=== PATIENT | male | born 1940 | race Caucasian/White ===

== ENCOUNTER 2017-10-11 22:42 | Inpatient (IN) | payer MEDICARE ==
[2017-10-11 23:19] LABS: BASO % 0.7 % (0.0-1.0); EOS # 0.2 10^3/uL (0.0-0.50); EOS % 3.5 % (0.0-3.0); HEMATOCRIT 43.2 % (42.0-52.0); HEMOGLOBIN 14.4 g/dl (14.0-18.0); IMMATURE GRANULOCYTE % 0.3 % (0-0); LYMPH # 0.7 10^3/uL (1.5-4.5); LYMPH % 11.3 % (24.0-44.0); MEAN CORPUSCULAR HEMOGLOBIN 31.2 pg (27.0-33.0); MEAN CORPUSCULAR HGB CONC 33.3 g/dl (32.0-36.5); MEAN CORPUSCULAR VOLUME 93.7 fl (80.0-96.0); MONO # 0.3 10^3/uL (0.0-0.8); MONO % 5.6 % (0.0-5.0); NEUTROPHILS # 4.8 10^3/uL (1.8-7.7); NEUTROPHILS % 78.6 % (36.0-66.0); PLATELET COUNT, AUTOMATED 149 10^3/uL (150-450); RED BLOOD COUNT 4.61 10^6/uL (4.30-6.10); RED CELL DISTRIBUTION WIDTH 14.5 % (11.5-14.5); WHITE BLOOD COUNT 6.1 10^3/uL (4.0-10.0)
[2017-10-11 23:20] LABS: VENOUS BASE EXCESS 0.2 (-2.0-2.0); VENOUS HCO3 23.8 MEQ/L (23.0-27.0); VENOUS O2 SATURATION 95.8 % (60.0-80.0); VENOUS PARTIAL PRESSURE CO2 35.9 mmHg (38.0-50.0); VENOUS STANDARD HCO3 24.6 MEQ/L; VENOUS TOTAL CO2 24.9 MEQ/L (24.0-28.0)
[2017-10-11] MEDS: IPRATROPIUM 0.5MG/ALBUTEROL 2.5MG INH SOL UD 3ML (DUONEB)(J7620) NEB (23:48)
[2017-10-11 23:49] LABS: ANION GAP 7 MEQ/L (8-16); BLOOD UREA NITROGEN 23 MG/DL (7-18); CALCIUM LEVEL 9.6 MG/DL (8.8-10.2); CARBON DIOXIDE LEVEL 27 MEQ/L (21-32); CHLORIDE LEVEL 107 MEQ/L (98-107); CREATININE FOR GFR 1.73 MG/DL (0.70-1.30); GLOMERULAR FILTRATION RATE 40.8 (>42); GLUCOSE, FASTING 272 MG/DL (83-110); NT-PRO BNP 22428 PG/ML (<450); POTASSIUM SERUM 4.5 MEQ/L (3.5-5.1); SODIUM LEVEL 141 MEQ/L (136-145)
[2017-10-12 00:30] LABS: CK-MB VALUE MASS 1.5 NG/ML (0.0-3.6); CPK CREATINE PHOSPHOKINASE 46 U/L (39-308); MB/CK RELATIVE INDEX 3.26 (< OR =4); TROPONIN I 0.02 NG/ML (< 0.10)
[2017-10-12] MEDS: FUROSEMIDE 40 MG/4 ML VIAL (J1940) IV (00:48)
[2017-10-12] MEDS: valACYclovir HCL 500 MG TAB PO ×3 (00:48→17:26)
[2017-10-12] MEDS ORDERED: DEXTROSE 50% 50 ML SYRINGE IV (03:15)
[2017-10-12] MEDS ORDERED: GLUCOSE 4 GM CHEW TABLET PO (03:15)
[2017-10-12] MEDS ORDERED: GLUCAGON FOR INJ 1 MG VIAL (J1610) SC (03:15)
[2017-10-12 03:16] LABS: INR 3.98; PROTHROMBIN TIME 40.9 SECONDS (12.4-14.5)
[2017-10-12] MEDS ORDERED: SLF 3 ML SYR IV (04:30)
[2017-10-12] MEDS: FUROSEMIDE 100 MG/10 ML VIAL (J1940) IV ×3 (06:39→17:25)
[2017-10-12] MEDS: SLF 3 ML SYR IV ×3 (06:39→22:48)
[2017-10-12 08:19] LABS: BEDSIDE GLUCOSE 338 MG/DL (83-110)
[2017-10-12] MEDS: CARVedilol 12.5 MG TAB PO ×2 (08:41→22:24)
[2017-10-12] MEDS: ISOSORBIDE MON. (IMDUR) 60 MG XR TAB PO (08:41)
[2017-10-12] MEDS: HumaLOG INSULIN (NovoLOG) PER UNIT SC ×4 (08:41→22:47)
[2017-10-12] MEDS: AMIODARONE 200 MG TAB (PACERONE) PO (08:41)
[2017-10-12] MEDS: MAGNESIUM OXIDE 400 MG TAB (MAG-OX) PO (08:42)
[2017-10-12 08:50] LABS: HEMATOCRIT 45.7 % (42.0-52.0); MEAN CORPUSCULAR HEMOGLOBIN 31.1 pg (27.0-33.0); MEAN CORPUSCULAR HGB CONC 32.8 g/dl (32.0-36.5); MEAN CORPUSCULAR VOLUME 94.6 fl (80.0-96.0); PLATELET COUNT, AUTOMATED 134 10^3/uL (150-450); RED BLOOD COUNT 4.83 10^6/uL (4.30-6.10); RED CELL DISTRIBUTION WIDTH 14.6 % (11.5-14.5); WHITE BLOOD COUNT 6.5 10^3/uL (4.0-10.0)
[2017-10-12 09:09] LABS: ANION GAP 10 MEQ/L (8-16); BLOOD UREA NITROGEN 25 MG/DL (7-18); CALCIUM LEVEL 9.5 MG/DL (8.8-10.2); CARBON DIOXIDE LEVEL 27 MEQ/L (21-32); CHLORIDE LEVEL 106 MEQ/L (98-107); CREATININE FOR GFR 1.81 MG/DL (0.70-1.30); GLOMERULAR FILTRATION RATE 38.7 (>42); GLUCOSE, FASTING 319 MG/DL (83-110); MAGNESIUM LEVEL 2.1 MG/DL (1.8-2.4); POTASSIUM SERUM 4.5 MEQ/L (3.5-5.1); SODIUM LEVEL 143 MEQ/L (136-145)
[2017-10-12 12:12] LABS: BEDSIDE GLUCOSE 222 MG/DL (83-110)
[2017-10-12 17:05] LABS: BEDSIDE GLUCOSE 155 MG/DL (83-110)
[2017-10-12 22:54] LABS: BEDSIDE GLUCOSE 279 MG/DL (83-110)
[2017-10-13] MEDS: FUROSEMIDE 100 MG/10 ML VIAL (J1940) IV ×5 (01:10→23:31)
[2017-10-13] MEDS: valACYclovir HCL 500 MG TAB PO ×3 (01:11→17:22)
[2017-10-13 05:12] LABS: HEMATOCRIT 42.9 % (42.0-52.0); HEMOGLOBIN 14.4 g/dl (14.0-18.0); MEAN CORPUSCULAR HEMOGLOBIN 31.2 pg (27.0-33.0); MEAN CORPUSCULAR HGB CONC 33.6 g/dl (32.0-36.5); MEAN CORPUSCULAR VOLUME 93.1 fl (80.0-96.0); PLATELET COUNT, AUTOMATED 128 10^3/uL (150-450); RED BLOOD COUNT 4.61 10^6/uL (4.30-6.10); RED CELL DISTRIBUTION WIDTH 14.8 % (11.5-14.5); WHITE BLOOD COUNT 4.5 10^3/uL (4.0-10.0)
[2017-10-13 05:21] LABS: ANION GAP 8 MEQ/L (8-16); BLOOD UREA NITROGEN 32 MG/DL (7-18); CALCIUM LEVEL 9.2 MG/DL (8.8-10.2); CARBON DIOXIDE LEVEL 29 MEQ/L (21-32); CHLORIDE LEVEL 106 MEQ/L (98-107); CREATININE FOR GFR 1.92 MG/DL (0.70-1.30); GLOMERULAR FILTRATION RATE 36.1 (>42); GLUCOSE, FASTING 224 MG/DL (83-110); MAGNESIUM LEVEL 2.2 MG/DL (1.8-2.4); POTASSIUM SERUM 3.7 MEQ/L (3.5-5.1); SODIUM LEVEL 143 MEQ/L (136-145)
[2017-10-13] MEDS: SLF 3 ML SYR IV ×3 (07:01→21:50)
[2017-10-13] MEDS: HumaLOG INSULIN (NovoLOG) PER UNIT SC ×4 (07:47→21:50)
[2017-10-13 08:27] LABS: INR 2.35; PROTHROMBIN TIME 26.7 SECONDS (12.4-14.5)
[2017-10-13] MEDS: AMIODARONE 200 MG TAB (PACERONE) PO (08:54)
[2017-10-13] MEDS: MAGNESIUM OXIDE 400 MG TAB (MAG-OX) PO (08:54)
[2017-10-13] MEDS: ISOSORBIDE MON. (IMDUR) 60 MG XR TAB PO (08:54)
[2017-10-13] MEDS: CARVedilol 12.5 MG TAB PO ×2 (08:55→20:33)
[2017-10-13] MEDS: WARFARIN SOD 2.5 MG TAB PO (18:27)
[2017-10-13 21:55] LABS: BEDSIDE GLUCOSE 210 MG/DL (83-110)
[2017-10-13 21:55] LABS: BEDSIDE GLUCOSE 282 MG/DL (83-110)
[2017-10-13 21:55] LABS: BEDSIDE GLUCOSE 259 MG/DL (83-110)
[2017-10-14] MEDS: valACYclovir HCL 500 MG TAB PO ×2 (01:14→08:32)
[2017-10-14 04:57] LABS: HEMATOCRIT 42.8 % (42.0-52.0); HEMOGLOBIN 14.3 g/dl (14.0-18.0); MEAN CORPUSCULAR HEMOGLOBIN 31.2 pg (27.0-33.0); MEAN CORPUSCULAR HGB CONC 33.4 g/dl (32.0-36.5); MEAN CORPUSCULAR VOLUME 93.4 fl (80.0-96.0); PLATELET COUNT, AUTOMATED 139 10^3/uL (150-450); RED BLOOD COUNT 4.58 10^6/uL (4.30-6.10); RED CELL DISTRIBUTION WIDTH 14.8 % (11.5-14.5); WHITE BLOOD COUNT 4.2 10^3/uL (4.0-10.0)
[2017-10-14 05:06] LABS: INR 1.79; PROTHROMBIN TIME 21.4 SECONDS (12.4-14.5)
[2017-10-14 05:16] LABS: ANION GAP 9 MEQ/L (8-16); BLOOD UREA NITROGEN 40 MG/DL (7-18); CALCIUM LEVEL 8.4 MG/DL (8.8-10.2); CARBON DIOXIDE LEVEL 28 MEQ/L (21-32); CHLORIDE LEVEL 106 MEQ/L (98-107); CREATININE FOR GFR 2.21 MG/DL (0.70-1.30); GLOMERULAR FILTRATION RATE 30.7 (>42); GLUCOSE, FASTING 117 MG/DL (83-110); MAGNESIUM LEVEL 2.1 MG/DL (1.8-2.4); POTASSIUM SERUM 3.5 MEQ/L (3.5-5.1); SODIUM LEVEL 143 MEQ/L (136-145)
[2017-10-14] MEDS: FUROSEMIDE 100 MG/10 ML VIAL (J1940) IV (06:31)
[2017-10-14] MEDS: SLF 3 ML SYR IV ×3 (06:32→21:54)
[2017-10-14] MEDS: HumaLOG INSULIN (NovoLOG) PER UNIT SC ×5 (07:32→21:53)
[2017-10-14] MEDS: CARVedilol 12.5 MG TAB PO ×3 (08:31→22:00)
[2017-10-14] MEDS: ISOSORBIDE MON. (IMDUR) 60 MG XR TAB PO (08:38)
[2017-10-14] MEDS: AMIODARONE 200 MG TAB (PACERONE) PO (08:38)
[2017-10-14] MEDS: MAGNESIUM OXIDE 400 MG TAB (MAG-OX) PO (08:38)
[2017-10-14 13:56] LABS: APPEARANCE, URINE TURBID (CLEAR); BACTERIA, URINE AUTO 3+ (NEGATIVE); BILIRUBIN, URINE AUTO NEGATIVE (NEGATIVE); BLOOD, URINE BLOOD NEGATIVE (NEGATIVE); COLOR, URINE AMBER (YELLOW); GLUCOSE, URINE (UA) AUTO NEGATIVE (NEGATIVE); KETONE, URINE AUTO NEGATIVE (NEGATIVE); LEUKOCYTE ESTERASE, URINE AUTO 3+ (NEGATIVE); NITRITE, URINE AUTO NEGATIVE (NEGATIVE); PROTEIN, URINE AUTO 1+ mg/dL (NEGATIVE); RBC, URINE AUTO 14 /HPF (0-3); SPECIFIC GRAVITY URINE AUTO 1.011 (1.002-1.035); SQUAMOUS EPITHELIAL CELL UR AU 1 /HPF (0-6); UROBILINOGEN, URINE AUTO 0.2 mg/dL (0.0-2.0); WBC, URINE AUTO TNTC /HPF (0-3)
[2017-10-14 16:10] LABS: BEDSIDE GLUCOSE 378 MG/DL (83-110)
[2017-10-14] MEDS: ASPIRIN 81 MG ENTERIC TAB PO (16:40)
[2017-10-14] MEDS: WARFARIN SOD 5 MG TAB PO (16:40)
[2017-10-14 17:10] LABS: BEDSIDE GLUCOSE 201 MG/DL (83-110)
[2017-10-14] MEDS: NYSTATIN 100,000 UNITS/GM TOPICAL PWD 15 GM TOP (23:37)
[2017-10-15 00:11] LABS: BEDSIDE GLUCOSE 195 MG/DL (83-110)
[2017-10-15 04:15] LABS: HEMATOCRIT 43.1 % (42.0-52.0); HEMOGLOBIN 14.2 g/dl (14.0-18.0); MEAN CORPUSCULAR HEMOGLOBIN 31.1 pg (27.0-33.0); MEAN CORPUSCULAR HGB CONC 32.9 g/dl (32.0-36.5); MEAN CORPUSCULAR VOLUME 94.3 fl (80.0-96.0); PLATELET COUNT, AUTOMATED 141 10^3/uL (150-450); RED BLOOD COUNT 4.57 10^6/uL (4.30-6.10); RED CELL DISTRIBUTION WIDTH 14.7 % (11.5-14.5); WHITE BLOOD COUNT 4.4 10^3/uL (4.0-10.0)
[2017-10-15 04:32] LABS: ANION GAP 7 MEQ/L (8-16); BLOOD UREA NITROGEN 50 MG/DL (7-18); CALCIUM LEVEL 7.8 MG/DL (8.8-10.2); CARBON DIOXIDE LEVEL 28 MEQ/L (21-32); CHLORIDE LEVEL 107 MEQ/L (98-107); CREATININE FOR GFR 2.39 MG/DL (0.70-1.30); GLOMERULAR FILTRATION RATE 28.1 (>42); GLUCOSE, FASTING 154 MG/DL (83-110); INR 1.59; MAGNESIUM LEVEL 2.4 MG/DL (1.8-2.4); POTASSIUM SERUM 3.7 MEQ/L (3.5-5.1); PROTHROMBIN TIME 19.4 SECONDS (12.4-14.5); SODIUM LEVEL 142 MEQ/L (136-145)
[2017-10-15] MEDS: SLF 3 ML SYR IV ×3 (06:22→21:20)
[2017-10-15 07:48] LABS: BEDSIDE GLUCOSE 215 MG/DL (83-110)
[2017-10-15] MEDS: HumaLOG INSULIN (NovoLOG) PER UNIT SC ×4 (08:15→21:00)
[2017-10-15] MEDS: AMIODARONE 200 MG TAB (PACERONE) PO (08:16)
[2017-10-15] MEDS: CARVedilol 12.5 MG TAB PO ×2 (08:16→21:00)
[2017-10-15] MEDS: ASPIRIN 81 MG ENTERIC TAB PO (08:16)
[2017-10-15] MEDS: valACYclovir HCL 500 MG TAB PO (08:16)
[2017-10-15] MEDS: MAGNESIUM OXIDE 400 MG TAB (MAG-OX) PO (08:17)
[2017-10-15] MEDS: ISOSORBIDE MON. (IMDUR) 60 MG XR TAB PO (08:17)
[2017-10-15] MEDS: NYSTATIN 100,000 UNITS/GM TOPICAL PWD 15 GM TOP ×2 (08:19→21:20)
[2017-10-15 11:53] LABS: BEDSIDE GLUCOSE 332 MG/DL (83-110)
[2017-10-15 17:12] LABS: BEDSIDE GLUCOSE 285 MG/DL (83-110)
[2017-10-15] MEDS: WARFARIN SOD 5 MG TAB PO (17:50)
[2017-10-15] MEDS: ACETAMINOPHEN TAB 650MG DOSE (2X325MG) PO (21:21)
[2017-10-15 21:49] LABS: BEDSIDE GLUCOSE 229 MG/DL (83-110)
[2017-10-16] MEDS: ACETAMINOPHEN TAB 650MG DOSE (2X325MG) PO ×3 (04:12→22:39)
[2017-10-16] MEDS: SLF 3 ML SYR IV ×3 (04:15→21:06)
[2017-10-16 05:12] LABS: HEMATOCRIT 40.5 % (42.0-52.0); HEMOGLOBIN 13.4 g/dl (14.0-18.0); MEAN CORPUSCULAR HEMOGLOBIN 31.2 pg (27.0-33.0); MEAN CORPUSCULAR HGB CONC 33.1 g/dl (32.0-36.5); MEAN CORPUSCULAR VOLUME 94.2 fl (80.0-96.0); PLATELET COUNT, AUTOMATED 140 10^3/uL (150-450); RED CELL DISTRIBUTION WIDTH 14.8 % (11.5-14.5); WHITE BLOOD COUNT 5.7 10^3/uL (4.0-10.0)
[2017-10-16 05:23] LABS: INR 1.85; PROTHROMBIN TIME 21.9 SECONDS (12.4-14.5)
[2017-10-16 05:34] LABS: ANION GAP 7 MEQ/L (8-16); BLOOD UREA NITROGEN 52 MG/DL (7-18); CALCIUM LEVEL 7.8 MG/DL (8.8-10.2); CARBON DIOXIDE LEVEL 26 MEQ/L (21-32); CHLORIDE LEVEL 107 MEQ/L (98-107); CREATININE FOR GFR 2.03 MG/DL (0.70-1.30); GLOMERULAR FILTRATION RATE 33.9 (>42); GLUCOSE, FASTING 213 MG/DL (83-110); MAGNESIUM LEVEL 2.3 MG/DL (1.8-2.4); POTASSIUM SERUM 3.9 MEQ/L (3.5-5.1); SODIUM LEVEL 140 MEQ/L (136-145)
[2017-10-16] MEDS: HumaLOG INSULIN (NovoLOG) PER UNIT SC ×4 (08:19→21:05)
[2017-10-16] MEDS: CARVedilol 12.5 MG TAB PO ×2 (08:19→21:00)
[2017-10-16] MEDS: valACYclovir HCL 500 MG TAB PO (08:20)
[2017-10-16] MEDS: MAGNESIUM OXIDE 400 MG TAB (MAG-OX) PO (08:20)
[2017-10-16] MEDS: ISOSORBIDE MON. (IMDUR) 60 MG XR TAB PO (08:20)
[2017-10-16] MEDS: AMIODARONE 200 MG TAB (PACERONE) PO (08:21)
[2017-10-16] MEDS: ASPIRIN 81 MG ENTERIC TAB PO (08:21)
[2017-10-16] MEDS: NYSTATIN 100,000 UNITS/GM TOPICAL PWD 15 GM TOP ×2 (08:21→21:06)
[2017-10-16] MEDS ORDERED: ROCEPHIN (cefTRIAXone) 100MG/ML SYR BULK (J0696) IV (09:15)
[2017-10-16] MEDS: ACETAMINOPHEN 500 MG TAB PO (09:28)
[2017-10-16] MEDS: CEFTRIAXONE SOD 1 GM in APPROPRIATE DILUENT 1 EA IV (10:48)
[2017-10-16 11:04] LABS: KETONE, URINE AUTO RFX NEGATIVE (NEGATIVE); NITRITE, URINE AUTO RFX NEGATIVE (NEGATIVE); RBC, URINE AUTO RFX 10 /HPF (0-3); SPECIFIC GRAVITY UR AUTO RFX 1.017 (1.002-1.035); SQUAM EPITHELIAL CELL UR AURFX 1 /HPF (0-6)
[2017-10-16 11:05] LABS: LEUKOCYTE ESTERASE UR AUTO RFX 3+ (NEGATIVE); WBC, URINE AUTO RFX TNTC /HPF (0-3)
[2017-10-16] MEDS: MORPHINE 2 MG/ML 1ML SYRINGE IV (11:28)
[2017-10-16] MEDS: LACTOBACILLUS ACIDOPHILUS CAP (BACID) PO ×2 (12:11→17:21)
[2017-10-16 12:51] LABS: BEDSIDE GLUCOSE 237 MG/DL (83-110)
[2017-10-16 17:20] LABS: BEDSIDE GLUCOSE 199 MG/DL (83-110)
[2017-10-16] MEDS: WARFARIN SOD 5 MG TAB PO (17:21)
[2017-10-16 20:54] LABS: BEDSIDE GLUCOSE 333 MG/DL (83-110)
[2017-10-17] MEDS: traMADol 50 MG TAB PO (04:55)
[2017-10-17] MEDS: SLF 3 ML SYR IV ×3 (04:58→20:26)
[2017-10-17 05:49] LABS: HEMATOCRIT 38.8 % (42.0-52.0); HEMOGLOBIN 12.9 g/dl (14.0-18.0); MEAN CORPUSCULAR HEMOGLOBIN 31.9 pg (27.0-33.0); MEAN CORPUSCULAR HGB CONC 33.2 g/dl (32.0-36.5); MEAN CORPUSCULAR VOLUME 95.8 fl (80.0-96.0); PLATELET COUNT, AUTOMATED 133 10^3/uL (150-450); RED BLOOD COUNT 4.05 10^6/uL (4.30-6.10); RED CELL DISTRIBUTION WIDTH 14.7 % (11.5-14.5)
[2017-10-17 06:05] LABS: INR 2.14; PROTHROMBIN TIME 24.7 SECONDS (12.4-14.5)
[2017-10-17 06:13] LABS: ANION GAP 7 MEQ/L (8-16); BLOOD UREA NITROGEN 54 MG/DL (7-18); CARBON DIOXIDE LEVEL 29 MEQ/L (21-32); CHLORIDE LEVEL 105 MEQ/L (98-107); CREATININE FOR GFR 1.87 MG/DL (0.70-1.30); GLOMERULAR FILTRATION RATE 37.3 (>42); GLUCOSE, FASTING 188 MG/DL (83-110); MAGNESIUM LEVEL 2.5 MG/DL (1.8-2.4); SODIUM LEVEL 141 MEQ/L (136-145)
[2017-10-17] MEDS: CALAMINE LOTION 177 ML BTL TOP ×2 (09:00→20:26)
[2017-10-17] MEDS: HumaLOG INSULIN (NovoLOG) PER UNIT SC ×4 (09:01→20:26)
[2017-10-17] MEDS: LACTOBACILLUS ACIDOPHILUS CAP (BACID) PO ×3 (09:01→17:55)
[2017-10-17] MEDS: CARVedilol 12.5 MG TAB PO ×2 (09:02→20:25)
[2017-10-17] MEDS: ISOSORBIDE MON. (IMDUR) 60 MG XR TAB PO (09:02)
[2017-10-17] MEDS: ASPIRIN 81 MG ENTERIC TAB PO (09:02)
[2017-10-17] MEDS: MAGNESIUM OXIDE 400 MG TAB (MAG-OX) PO (09:03)
[2017-10-17] MEDS: NYSTATIN 100,000 UNITS/GM TOPICAL PWD 15 GM TOP ×2 (09:03→20:26)
[2017-10-17] MEDS: AMIODARONE 200 MG TAB (PACERONE) PO (09:03)
[2017-10-17] MEDS: valACYclovir HCL 500 MG TAB PO ×2 (09:03→20:22)
[2017-10-17 11:20] LABS: BEDSIDE GLUCOSE 247 MG/DL (83-110)
[2017-10-17] MEDS: CEFTRIAXONE SOD 1 GM in APPROPRIATE DILUENT 1 EA IV (11:30)
[2017-10-17] MEDS: FUROSEMIDE 100 MG/10 ML VIAL (J1940) IV ×2 (11:31→18:49)
[2017-10-17] MEDS: ACETAMINOPHEN TAB 650MG DOSE (2X325MG) PO (11:31)
[2017-10-17 16:46] LABS: BEDSIDE GLUCOSE 173 MG/DL (83-110)
[2017-10-17] MEDS: WARFARIN SOD 5 MG TAB PO (17:55)
[2017-10-17 20:11] LABS: BEDSIDE GLUCOSE 237 MG/DL (83-110)
[2017-10-18] MEDS: ACETAMINOPHEN TAB 650MG DOSE (2X325MG) PO ×3 (00:47→21:43)
[2017-10-18] MEDS: SLF 3 ML SYR IV ×3 (06:00→21:44)
[2017-10-18 06:26] LABS: HEMATOCRIT 40.6 % (42.0-52.0); HEMOGLOBIN 13.3 g/dl (14.0-18.0); MEAN CORPUSCULAR HEMOGLOBIN 31.6 pg (27.0-33.0); MEAN CORPUSCULAR HGB CONC 32.8 g/dl (32.0-36.5); MEAN CORPUSCULAR VOLUME 96.4 fl (80.0-96.0); PLATELET COUNT, AUTOMATED 132 10^3/uL (150-450); RED BLOOD COUNT 4.21 10^6/uL (4.30-6.10); RED CELL DISTRIBUTION WIDTH 14.6 % (11.5-14.5); WHITE BLOOD COUNT 5.8 10^3/uL (4.0-10.0)
[2017-10-18 06:38] LABS: INR 2.54; PROTHROMBIN TIME 28.4 SECONDS (12.4-14.5)
[2017-10-18 06:40] LABS: ANION GAP 9 MEQ/L (8-16); BLOOD UREA NITROGEN 54 MG/DL (7-18); CALCIUM LEVEL 7.8 MG/DL (8.8-10.2); CARBON DIOXIDE LEVEL 26 MEQ/L (21-32); CHLORIDE LEVEL 105 MEQ/L (98-107); CREATININE FOR GFR 2.07 MG/DL (0.70-1.30); GLOMERULAR FILTRATION RATE 33.1 (>42); GLUCOSE, FASTING 199 MG/DL (83-110); MAGNESIUM LEVEL 2.5 MG/DL (1.8-2.4); POTASSIUM SERUM 4.3 MEQ/L (3.5-5.1); SODIUM LEVEL 140 MEQ/L (136-145)
[2017-10-18] MEDS: HumaLOG INSULIN (NovoLOG) PER UNIT SC ×4 (09:44→21:43)
[2017-10-18] MEDS: MAGNESIUM OXIDE 400 MG TAB (MAG-OX) PO (09:44)
[2017-10-18] MEDS: ISOSORBIDE MON. (IMDUR) 60 MG XR TAB PO (09:45)
[2017-10-18] MEDS: CALAMINE LOTION 177 ML BTL TOP ×2 (09:46→21:44)
[2017-10-18] MEDS: CARVedilol 12.5 MG TAB PO ×2 (09:46→21:42)
[2017-10-18] MEDS: ASPIRIN 81 MG ENTERIC TAB PO (09:46)
[2017-10-18] MEDS: valACYclovir HCL 500 MG TAB PO ×2 (09:46→21:42)
[2017-10-18] MEDS: NYSTATIN 100,000 UNITS/GM TOPICAL PWD 15 GM TOP ×2 (09:46→21:44)
[2017-10-18] MEDS: AMIODARONE 200 MG TAB (PACERONE) PO (09:46)
[2017-10-18] MEDS: LACTOBACILLUS ACIDOPHILUS CAP (BACID) PO ×3 (09:47→17:51)
[2017-10-18 11:04] LABS: URIC ACID 11.6 MG/DL (3.5-7.2)
[2017-10-18] MEDS: predniSONE 20 MG TAB PO ×2 (11:32→21:42)
[2017-10-18] MEDS: ALLOPURINOL 300 MG TAB PO (11:32)
[2017-10-18] MEDS: FUROSEMIDE 100 MG/10 ML VIAL (J1940) IV (11:33)
[2017-10-18] MEDS: CEFTRIAXONE SOD 1 GM in APPROPRIATE DILUENT 1 EA IV (11:33)
[2017-10-18 12:06] LABS: BEDSIDE GLUCOSE 275 MG/DL (83-110)
[2017-10-18 16:26] LABS: BEDSIDE GLUCOSE 321 MG/DL (83-110)
[2017-10-18 17:38] LABS: ABG BASE EXCESS 0.3 (-2.0-2.0); ABG HCO3 25.8 MEQ/L (22.0-26.0); ABG O2 SATURATION 94.6 % (95.0-99.0); ABG PARTIAL PRESSURE CO2 45.1 mmHg (35.0-45.0); ABG PARTIAL PRESSURE O2 71.9 mmHg (75.0-100.0); ABG STANDARD HCO3 24.7 MEQ/L (22.0-26.0); ABG TOTAL CO2 27.2 MEQ/L (23.0-31.0); ABG pH (ARTERIAL) 7.376 UNITS (7.350-7.450)
[2017-10-18] MEDS: WARFARIN SOD 5 MG TAB PO (17:51)
[2017-10-18 18:09] LABS: AMMONIA 16 uMOL/L (<32)
[2017-10-18 21:38] LABS: BEDSIDE GLUCOSE 333 MG/DL (83-110)
[2017-10-19 01:34] LABS: BEDSIDE GLUCOSE 279 MG/DL (83-110)
[2017-10-19] MEDS: SLF 3 ML SYR IV ×3 (06:00→21:23)
[2017-10-19 06:22] LABS: HEMATOCRIT 38.7 % (42.0-52.0); HEMOGLOBIN 12.8 g/dl (14.0-18.0); MEAN CORPUSCULAR HEMOGLOBIN 31.4 pg (27.0-33.0); MEAN CORPUSCULAR HGB CONC 33.1 g/dl (32.0-36.5); MEAN CORPUSCULAR VOLUME 94.9 fl (80.0-96.0); PLATELET COUNT, AUTOMATED 147 10^3/uL (150-450); RED BLOOD COUNT 4.08 10^6/uL (4.30-6.10); RED CELL DISTRIBUTION WIDTH 14.6 % (11.5-14.5); WHITE BLOOD COUNT 6.3 10^3/uL (4.0-10.0)
[2017-10-19 06:36] LABS: ANION GAP 8 MEQ/L (8-16); BLOOD UREA NITROGEN 66 MG/DL (7-18); CALCIUM LEVEL 8.6 MG/DL (8.8-10.2); CARBON DIOXIDE LEVEL 26 MEQ/L (21-32); CHLORIDE LEVEL 105 MEQ/L (98-107); CREATININE FOR GFR 2.15 MG/DL (0.70-1.30); GLOMERULAR FILTRATION RATE 31.7 (>42); GLUCOSE, FASTING 295 MG/DL (83-110); MAGNESIUM LEVEL 3.1 MG/DL (1.8-2.4); POTASSIUM SERUM 4.5 MEQ/L (3.5-5.1); SODIUM LEVEL 139 MEQ/L (136-145)
[2017-10-19 06:41] LABS: INR 2.93; PROTHROMBIN TIME 31.8 SECONDS (12.4-14.5)
[2017-10-19] MEDS: valACYclovir HCL 500 MG TAB PO (07:59)
[2017-10-19] MEDS: LACTOBACILLUS ACIDOPHILUS CAP (BACID) PO ×3 (07:59→17:38)
[2017-10-19] MEDS: AMIODARONE 200 MG TAB (PACERONE) PO (07:59)
[2017-10-19] MEDS: ALLOPURINOL 300 MG TAB PO (07:59)
[2017-10-19] MEDS: predniSONE 20 MG TAB PO ×2 (08:00→21:22)
[2017-10-19] MEDS: ASPIRIN 81 MG ENTERIC TAB PO (08:00)
[2017-10-19] MEDS: ISOSORBIDE MON. (IMDUR) 60 MG XR TAB PO (08:01)
[2017-10-19] MEDS: CARVedilol 12.5 MG TAB PO ×2 (08:02→21:22)
[2017-10-19] MEDS: CALAMINE LOTION 177 ML BTL TOP ×2 (08:02→21:22)
[2017-10-19] MEDS: NYSTATIN 100,000 UNITS/GM TOPICAL PWD 15 GM TOP ×2 (08:03→21:00)
[2017-10-19] MEDS: HumaLOG INSULIN (NovoLOG) PER UNIT SC ×4 (08:05→21:21)
[2017-10-19] MEDS: MAGNESIUM OXIDE 400 MG TAB (MAG-OX) PO (09:00)
[2017-10-19] MEDS: CEFTRIAXONE SOD 1 GM in APPROPRIATE DILUENT 1 EA IV (11:47)
[2017-10-19 12:05] LABS: BEDSIDE GLUCOSE 285 MG/DL (83-110)
[2017-10-19 17:20] LABS: BEDSIDE GLUCOSE 365 MG/DL (83-110)
[2017-10-19] MEDS: WARFARIN SOD 2.5 MG TAB PO (17:39)
[2017-10-19 21:32] LABS: BEDSIDE GLUCOSE 352 MG/DL (83-110)
[2017-10-20] MEDS: SLF 3 ML SYR IV ×3 (06:00→19:30)
[2017-10-20 08:00] LABS: HEMATOCRIT 38.7 % (42.0-52.0); HEMOGLOBIN 12.9 g/dl (14.0-18.0); IMMATURE GRANULOCYTE % 0.5 % (0-0); LYMPH # 0.5 10^3/uL (1.5-4.5); LYMPH % 6.8 % (24.0-44.0); MEAN CORPUSCULAR HEMOGLOBIN 31.8 pg (27.0-33.0); MEAN CORPUSCULAR HGB CONC 33.3 g/dl (32.0-36.5); MEAN CORPUSCULAR VOLUME 95.3 fl (80.0-96.0); MONO # 0.2 10^3/uL (0.0-0.8); MONO % 3.5 % (0.0-5.0); NEUTROPHILS # 5.9 10^3/uL (1.8-7.7); NEUTROPHILS % 89.2 % (36.0-66.0); PLATELET COUNT, AUTOMATED 169 10^3/uL (150-450); RED BLOOD COUNT 4.06 10^6/uL (4.30-6.10); RED CELL DISTRIBUTION WIDTH 14.5 % (11.5-14.5); WHITE BLOOD COUNT 6.6 10^3/uL (4.0-10.0)
[2017-10-20] MEDS: LACTOBACILLUS ACIDOPHILUS CAP (BACID) PO ×3 (08:06→17:32)
[2017-10-20] MEDS: LEVEMIR (INSULIN DETEMIR) 1 UNITS/0.01ML SC (08:06)
[2017-10-20] MEDS: ALLOPURINOL 300 MG TAB PO (08:06)
[2017-10-20] MEDS: ASPIRIN 81 MG ENTERIC TAB PO (08:06)
[2017-10-20] MEDS: predniSONE 20 MG TAB PO ×2 (08:07→19:28)
[2017-10-20] MEDS: AMIODARONE 200 MG TAB (PACERONE) PO (08:07)
[2017-10-20] MEDS: ISOSORBIDE MON. (IMDUR) 60 MG XR TAB PO (08:08)
[2017-10-20] MEDS: CARVedilol 12.5 MG TAB PO ×2 (08:09→19:27)
[2017-10-20] MEDS: CALAMINE LOTION 177 ML BTL TOP ×2 (08:09→19:30)
[2017-10-20 08:14] LABS: PROTHROMBIN TIME 35.2 SECONDS (12.4-14.5)
[2017-10-20 08:20] LABS: ANION GAP 10 MEQ/L (8-16); BLOOD UREA NITROGEN 88 MG/DL (7-18); CALCIUM LEVEL 8.3 MG/DL (8.8-10.2); CARBON DIOXIDE LEVEL 25 MEQ/L (21-32); CHLORIDE LEVEL 104 MEQ/L (98-107); CREATININE FOR GFR 2.14 MG/DL (0.70-1.30); GLOMERULAR FILTRATION RATE 31.9 (>42); GLUCOSE, FASTING 374 MG/DL (83-110); POTASSIUM SERUM 4.5 MEQ/L (3.5-5.1); SODIUM LEVEL 139 MEQ/L (136-145)
[2017-10-20] MEDS: HumaLOG INSULIN (NovoLOG) PER UNIT SC ×4 (08:25→21:20)
[2017-10-20] MEDS: MAGNESIUM OXIDE 400 MG TAB (MAG-OX) PO (09:35)
[2017-10-20] MEDS: NYSTATIN 100,000 UNITS/GM TOPICAL PWD 15 GM TOP ×2 (10:31→19:29)
[2017-10-20] MEDS: CEFTRIAXONE SOD 1 GM in APPROPRIATE DILUENT 1 EA IV (10:31)
[2017-10-20 12:16] LABS: BEDSIDE GLUCOSE 418 MG/DL (83-110)
[2017-10-20] MEDS: TORSEMIDE 20 MG TAB PO (15:17)
[2017-10-20] MEDS: WARFARIN SOD 2.5 MG TAB PO (17:00)
[2017-10-20 17:33] LABS: BEDSIDE GLUCOSE 329 MG/DL (83-110)
[2017-10-20] MEDS: ACETAMINOPHEN TAB 650MG DOSE (2X325MG) PO (19:28)
[2017-10-20 20:51] LABS: BEDSIDE GLUCOSE 366 MG/DL (83-110)
[2017-10-21] MEDS: SLF 3 ML SYR IV ×3 (05:56→21:44)
[2017-10-21 06:48] LABS: HEMATOCRIT 38.4 % (42.0-52.0); HEMOGLOBIN 12.9 g/dl (14.0-18.0); MEAN CORPUSCULAR HEMOGLOBIN 31.5 pg (27.0-33.0); MEAN CORPUSCULAR HGB CONC 33.6 g/dl (32.0-36.5); MEAN CORPUSCULAR VOLUME 93.9 fl (80.0-96.0); PLATELET COUNT, AUTOMATED 194 10^3/uL (150-450); RED BLOOD COUNT 4.09 10^6/uL (4.30-6.10); RED CELL DISTRIBUTION WIDTH 14.6 % (11.5-14.5); WHITE BLOOD COUNT 5.8 10^3/uL (4.0-10.0)
[2017-10-21 06:59] LABS: INR 2.98; PROTHROMBIN TIME 32.3 SECONDS (12.4-14.5)
[2017-10-21 07:24] LABS: ANION GAP 10 MEQ/L (8-16); BLOOD UREA NITROGEN 89 MG/DL (7-18); CALCIUM LEVEL 8.8 MG/DL (8.8-10.2); CARBON DIOXIDE LEVEL 26 MEQ/L (21-32); CHLORIDE LEVEL 103 MEQ/L (98-107); CREATININE FOR GFR 1.95 MG/DL (0.70-1.30); GLOMERULAR FILTRATION RATE 35.5 (>42); GLUCOSE, FASTING 336 MG/DL (83-110); POTASSIUM SERUM 4.5 MEQ/L (3.5-5.1); SODIUM LEVEL 139 MEQ/L (136-145)
[2017-10-21] MEDS: CALAMINE LOTION 177 ML BTL TOP ×2 (08:11→20:35)
[2017-10-21] MEDS: LEVEMIR (INSULIN DETEMIR) 1 UNITS/0.01ML SC (08:11)
[2017-10-21] MEDS: HumaLOG INSULIN (NovoLOG) PER UNIT SC ×4 (08:11→21:43)
[2017-10-21] MEDS: NYSTATIN 100,000 UNITS/GM TOPICAL PWD 15 GM TOP ×2 (08:11→20:35)
[2017-10-21] MEDS: predniSONE 20 MG TAB PO ×2 (08:11→20:34)
[2017-10-21] MEDS: LACTOBACILLUS ACIDOPHILUS CAP (BACID) PO ×3 (08:12→17:03)
[2017-10-21] MEDS: AMIODARONE 200 MG TAB (PACERONE) PO (08:12)
[2017-10-21] MEDS: TORSEMIDE 20 MG TAB PO (08:12)
[2017-10-21] MEDS: ISOSORBIDE MON. (IMDUR) 60 MG XR TAB PO (08:12)
[2017-10-21] MEDS: ASPIRIN 81 MG ENTERIC TAB PO (08:13)
[2017-10-21] MEDS: ALLOPURINOL 300 MG TAB PO (08:13)
[2017-10-21] MEDS: CARVedilol 12.5 MG TAB PO ×2 (08:13→20:35)
[2017-10-21] MEDS: CEFTRIAXONE SOD 1 GM in APPROPRIATE DILUENT 1 EA IV (11:35)
[2017-10-21 12:02] LABS: BEDSIDE GLUCOSE 398 MG/DL (83-110)
[2017-10-21] MEDS: WARFARIN SOD 2.5 MG TAB PO (17:04)
[2017-10-21] MEDS: ACETAMINOPHEN TAB 650MG DOSE (2X325MG) PO ×2 (17:04→20:34)
[2017-10-21 17:26] LABS: BEDSIDE GLUCOSE 363 MG/DL (83-110)
[2017-10-21 21:44] LABS: BEDSIDE GLUCOSE 407 MG/DL (83-110)
[2017-10-22] MEDS: SLF 3 ML SYR IV ×4 (05:51→20:49)
[2017-10-22 07:10] LABS: HEMATOCRIT 40.6 % (42.0-52.0); HEMOGLOBIN 13.4 g/dl (14.0-18.0); MEAN CORPUSCULAR HEMOGLOBIN 31.2 pg (27.0-33.0); MEAN CORPUSCULAR VOLUME 94.6 fl (80.0-96.0); PLATELET COUNT, AUTOMATED 211 10^3/uL (150-450); RED BLOOD COUNT 4.29 10^6/uL (4.30-6.10); RED CELL DISTRIBUTION WIDTH 14.3 % (11.5-14.5); WHITE BLOOD COUNT 5.7 10^3/uL (4.0-10.0)
[2017-10-22 07:18] LABS: PROTHROMBIN TIME 27.1 SECONDS (12.4-14.5)
[2017-10-22 07:27] LABS: ANION GAP 7 MEQ/L (8-16); BLOOD UREA NITROGEN 100 MG/DL (7-18); CARBON DIOXIDE LEVEL 28 MEQ/L (21-32); CHLORIDE LEVEL 104 MEQ/L (98-107); CREATININE FOR GFR 1.87 MG/DL (0.70-1.30); GLOMERULAR FILTRATION RATE 37.3 (>42); GLUCOSE, FASTING 365 MG/DL (83-110); POTASSIUM SERUM 4.3 MEQ/L (3.5-5.1); SODIUM LEVEL 139 MEQ/L (136-145)
[2017-10-22] MEDS: LACTOBACILLUS ACIDOPHILUS CAP (BACID) PO ×3 (08:32→17:58)
[2017-10-22] MEDS: TORSEMIDE 20 MG TAB PO (08:33)
[2017-10-22] MEDS: CARVedilol 12.5 MG TAB PO ×2 (08:33→20:48)
[2017-10-22] MEDS: ISOSORBIDE MON. (IMDUR) 60 MG XR TAB PO (08:34)
[2017-10-22] MEDS: AMIODARONE 200 MG TAB (PACERONE) PO (08:35)
[2017-10-22] MEDS: ALLOPURINOL 300 MG TAB PO (08:35)
[2017-10-22] MEDS: ASPIRIN 81 MG ENTERIC TAB PO (08:35)
[2017-10-22] MEDS: predniSONE 20 MG TAB PO ×2 (08:35→20:48)
[2017-10-22] MEDS: HumaLOG INSULIN (NovoLOG) PER UNIT SC ×4 (08:36→21:05)
[2017-10-22] MEDS: LEVEMIR (INSULIN DETEMIR) 1 UNITS/0.01ML SC (08:37)
[2017-10-22] MEDS: NYSTATIN 100,000 UNITS/GM TOPICAL PWD 15 GM TOP ×2 (08:38→20:47)
[2017-10-22] MEDS: CALAMINE LOTION 177 ML BTL TOP ×2 (08:39→20:47)
[2017-10-22 12:22] LABS: BEDSIDE GLUCOSE 411 MG/DL (83-110)
[2017-10-22] MEDS: CEFTRIAXONE SOD 1 GM in APPROPRIATE DILUENT 1 EA IV (12:34)
[2017-10-22] MEDS: ENTRESTO 24-26MG TABLET (SACUBITRIL/VALSARTAN) PO ×2 (12:35→20:48)
[2017-10-22 17:13] LABS: BEDSIDE GLUCOSE 354 MG/DL (83-110)
[2017-10-22] MEDS: WARFARIN SOD 2.5 MG TAB PO (17:59)
[2017-10-22] MEDS: ACETAMINOPHEN TAB 650MG DOSE (2X325MG) PO (20:48)
[2017-10-23 07:37] LABS: HEMATOCRIT 41.8 % (42.0-52.0); HEMOGLOBIN 14.2 g/dl (14.0-18.0); MEAN CORPUSCULAR HEMOGLOBIN 31.8 pg (27.0-33.0); MEAN CORPUSCULAR VOLUME 93.5 fl (80.0-96.0); PLATELET COUNT, AUTOMATED 247 10^3/uL (150-450); RED BLOOD COUNT 4.47 10^6/uL (4.30-6.10); RED CELL DISTRIBUTION WIDTH 14.4 % (11.5-14.5); WHITE BLOOD COUNT 7.5 10^3/uL (4.0-10.0)
[2017-10-23 07:52] LABS: INR 2.23; PROTHROMBIN TIME 25.5 SECONDS (12.4-14.5)
[2017-10-23 07:56] LABS: ANION GAP 9 MEQ/L (8-16); BLOOD UREA NITROGEN 82 MG/DL (7-18); CALCIUM LEVEL 8.7 MG/DL (8.8-10.2); CARBON DIOXIDE LEVEL 27 MEQ/L (21-32); CHLORIDE LEVEL 104 MEQ/L (98-107); CREATININE FOR GFR 1.68 MG/DL (0.70-1.30); GLOMERULAR FILTRATION RATE 42.2 (>42); GLUCOSE, FASTING 391 MG/DL (83-110); POTASSIUM SERUM 4.4 MEQ/L (3.5-5.1); SODIUM LEVEL 140 MEQ/L (136-145)
[2017-10-23] MEDS: ISOSORBIDE MON. (IMDUR) 60 MG XR TAB PO (08:41)
[2017-10-23] MEDS: ENTRESTO 24-26MG TABLET (SACUBITRIL/VALSARTAN) PO ×2 (08:41→20:55)
[2017-10-23] MEDS: ASPIRIN 81 MG ENTERIC TAB PO (08:42)
[2017-10-23] MEDS: AMIODARONE 200 MG TAB (PACERONE) PO (08:42)
[2017-10-23] MEDS: ALLOPURINOL 300 MG TAB PO (08:42)
[2017-10-23] MEDS: GLIMEPIRIDE 2 MG TAB PO (08:42)
[2017-10-23] MEDS: LACTOBACILLUS ACIDOPHILUS CAP (BACID) PO ×3 (08:42→17:13)
[2017-10-23] MEDS: TORSEMIDE 20 MG TAB PO (08:42)
[2017-10-23] MEDS: HumaLOG INSULIN (NovoLOG) PER UNIT SC ×4 (08:43→20:55)
[2017-10-23] MEDS: CARVedilol 12.5 MG TAB PO ×2 (08:43→20:53)
[2017-10-23] MEDS: LEVEMIR (INSULIN DETEMIR) 1 UNITS/0.01ML SC (08:43)
[2017-10-23] MEDS: CALAMINE LOTION 177 ML BTL TOP ×2 (08:44→20:56)
[2017-10-23] MEDS: NYSTATIN 100,000 UNITS/GM TOPICAL PWD 15 GM TOP ×2 (08:44→20:56)
[2017-10-23 12:00] LABS: BEDSIDE GLUCOSE 432 MG/DL (83-110)
[2017-10-23] MEDS: ACETAMINOPHEN TAB 650MG DOSE (2X325MG) PO (12:18)
[2017-10-23] MEDS: SLF 3 ML SYR IV ×2 (13:25→20:56)
[2017-10-23] MEDS: WARFARIN SOD 2.5 MG TAB PO (17:13)
[2017-10-24 03:12] LABS: BEDSIDE GLUCOSE 302 MG/DL (83-110)
[2017-10-24 03:12] LABS: BEDSIDE GLUCOSE 392 MG/DL (83-110)
[2017-10-24] MEDS: ACETAMINOPHEN TAB 650MG DOSE (2X325MG) PO (04:20)
[2017-10-24] MEDS: SLF 3 ML SYR IV ×3 (06:00→20:34)
[2017-10-24 06:43] LABS: HEMATOCRIT 43.6 % (42.0-52.0); HEMOGLOBIN 14.7 g/dl (14.0-18.0); MEAN CORPUSCULAR HEMOGLOBIN 31.2 pg (27.0-33.0); MEAN CORPUSCULAR HGB CONC 33.7 g/dl (32.0-36.5); MEAN CORPUSCULAR VOLUME 92.6 fl (80.0-96.0); PLATELET COUNT, AUTOMATED 254 10^3/uL (150-450); RED BLOOD COUNT 4.71 10^6/uL (4.30-6.10); RED CELL DISTRIBUTION WIDTH 14.5 % (11.5-14.5); WHITE BLOOD COUNT 9.3 10^3/uL (4.0-10.0)
[2017-10-24 06:57] LABS: INR 2.23; PROTHROMBIN TIME 25.5 SECONDS (12.4-14.5)
[2017-10-24 07:03] LABS: ANION GAP 9 MEQ/L (8-16); BLOOD UREA NITROGEN 91 MG/DL (7-18); CALCIUM LEVEL 8.7 MG/DL (8.8-10.2); CARBON DIOXIDE LEVEL 26 MEQ/L (21-32); CHLORIDE LEVEL 107 MEQ/L (98-107); CREATININE FOR GFR 1.87 MG/DL (0.70-1.30); GLOMERULAR FILTRATION RATE 37.3 (>42); GLUCOSE, FASTING 114 MG/DL (83-110); POTASSIUM SERUM 3.7 MEQ/L (3.5-5.1); SODIUM LEVEL 142 MEQ/L (136-145)
[2017-10-24] MEDS: ENTRESTO 24-26MG TABLET (SACUBITRIL/VALSARTAN) PO ×2 (08:26→20:32)
[2017-10-24] MEDS: GLIMEPIRIDE 2 MG TAB PO (08:26)
[2017-10-24] MEDS: TORSEMIDE 20 MG TAB PO (08:26)
[2017-10-24] MEDS: HumaLOG INSULIN (NovoLOG) PER UNIT SC ×4 (08:26→20:34)
[2017-10-24] MEDS: ASPIRIN 81 MG ENTERIC TAB PO (08:27)
[2017-10-24] MEDS: LACTOBACILLUS ACIDOPHILUS CAP (BACID) PO ×3 (08:27→17:36)
[2017-10-24] MEDS: AMIODARONE 200 MG TAB (PACERONE) PO (08:27)
[2017-10-24] MEDS: ALLOPURINOL 300 MG TAB PO (08:27)
[2017-10-24] MEDS: LEVEMIR (INSULIN DETEMIR) 1 UNITS/0.01ML SC (08:27)
[2017-10-24] MEDS: CALAMINE LOTION 177 ML BTL TOP ×2 (08:28→20:34)
[2017-10-24] MEDS: NYSTATIN 100,000 UNITS/GM TOPICAL PWD 15 GM TOP ×2 (08:28→20:34)
[2017-10-24] MEDS: CARVedilol 12.5 MG TAB PO ×2 (08:32→20:33)
[2017-10-24] MEDS: ISOSORBIDE MON. (IMDUR) 60 MG XR TAB PO (08:33)
[2017-10-24 12:15] LABS: BEDSIDE GLUCOSE 258 MG/DL (83-110)
[2017-10-24] MEDS: WARFARIN SOD 2.5 MG TAB PO (17:36)
[2017-10-24 18:43] LABS: BEDSIDE GLUCOSE 209 MG/DL (83-110)
[2017-10-24 20:25] LABS: BEDSIDE GLUCOSE 299 MG/DL (83-110)
[2017-10-25] MEDS: SLF 3 ML SYR IV (04:47)
[2017-10-25] MEDS: ACETAMINOPHEN TAB 650MG DOSE (2X325MG) PO (06:14)
[2017-10-25 07:12] LABS: HEMATOCRIT 41.1 % (42.0-52.0); HEMOGLOBIN 13.8 g/dl (14.0-18.0); MEAN CORPUSCULAR HEMOGLOBIN 31.4 pg (27.0-33.0); MEAN CORPUSCULAR HGB CONC 33.6 g/dl (32.0-36.5); MEAN CORPUSCULAR VOLUME 93.6 fl (80.0-96.0); PLATELET COUNT, AUTOMATED 227 10^3/uL (150-450); RED BLOOD COUNT 4.39 10^6/uL (4.30-6.10); RED CELL DISTRIBUTION WIDTH 14.7 % (11.5-14.5); WHITE BLOOD COUNT 8.3 10^3/uL (4.0-10.0)
[2017-10-25 07:27] LABS: ANION GAP 9 MEQ/L (8-16); BLOOD UREA NITROGEN 84 MG/DL (7-18); CALCIUM LEVEL 8.4 MG/DL (8.8-10.2); CARBON DIOXIDE LEVEL 27 MEQ/L (21-32); CHLORIDE LEVEL 108 MEQ/L (98-107); CREATININE FOR GFR 1.75 MG/DL (0.70-1.30); GLOMERULAR FILTRATION RATE 40.2 (>42); GLUCOSE, FASTING 168 MG/DL (83-110); POTASSIUM SERUM 3.5 MEQ/L (3.5-5.1); SODIUM LEVEL 144 MEQ/L (136-145)
[2017-10-25 07:30] LABS: INR 2.39
[2017-10-25] MEDS: HumaLOG INSULIN (NovoLOG) PER UNIT SC (08:15)
[2017-10-25] MEDS: LEVEMIR (INSULIN DETEMIR) 1 UNITS/0.01ML SC (08:15)
[2017-10-25] MEDS: CARVedilol 12.5 MG TAB PO (08:16)
[2017-10-25] MEDS: TORSEMIDE 20 MG TAB PO (08:16)
[2017-10-25] MEDS: ALLOPURINOL 300 MG TAB PO (08:16)
[2017-10-25] MEDS: GLIMEPIRIDE 2 MG TAB PO (08:16)
[2017-10-25] MEDS: LACTOBACILLUS ACIDOPHILUS CAP (BACID) PO (08:16)
[2017-10-25] MEDS: AMIODARONE 200 MG TAB (PACERONE) PO (08:17)
[2017-10-25] MEDS: ISOSORBIDE MON. (IMDUR) 60 MG XR TAB PO (08:17)
[2017-10-25] MEDS: ENTRESTO 24-26MG TABLET (SACUBITRIL/VALSARTAN) PO (08:17)
[2017-10-25] MEDS: ASPIRIN 81 MG ENTERIC TAB PO (08:17)
[2017-10-25] MEDS: NYSTATIN 100,000 UNITS/GM TOPICAL PWD 15 GM TOP (08:18)
[2017-10-25] MEDS: CALAMINE LOTION 177 ML BTL TOP (08:18)
== END 2017-10-25 11:20 | DRG 291 ==
LOC: M ED 22:42 → M MS5PR 10-20 17:49 → M ED INP 10-12 02:21 → M PCU 10-12 04:08
DX: I13.0 Hypertensive heart and chronic kidney disease with heart failure and stage 1 through stage 4 chronic kidney disease, or unspecified chronic kidney disease (principal); I50.43 Acute on chronic combined systolic (congestive) and diastolic (congestive) heart failure; G93.41 Metabolic encephalopathy; N17.9 Acute kidney failure, unspecified; N39.0 Urinary tract infection, site not specified; I50.810 Right heart failure, unspecified; N18.3 Chronic kidney disease, stage 3 (moderate); B02.9 Zoster without complications; M10.9 Gout, unspecified; E78.5 Hyperlipidemia, unspecified; I48.91 Unspecified atrial fibrillation; E11.9 Type 2 diabetes mellitus without complications; I25.10 Atherosclerotic heart disease of native coronary artery without angina pectoris; Z95.2 Presence of prosthetic heart valve; Z79.82 Long term (current) use of aspirin; Z79.01 Long term (current) use of anticoagulants; Z79.84 Long term (current) use of oral hypoglycemic drugs; Z79.899 Other long term (current) drug therapy; Z91.018 Allergy to other foods; Z95.810 Presence of automatic (implantable) cardiac defibrillator; Z95.1 Presence of aortocoronary bypass graft

== ENCOUNTER → 2017-10-26 | Outpatient (REF) ==
[2017-10-26 10:22] LABS: ESTIMATED AVERAGE GLUCOSE 286 MG/DL (60-110); HEMOGLOBIN A1c 11.6 %
[2017-10-26 10:37] LABS: URIC ACID 10.1 MG/DL (3.5-7.2)
== END ==
DX: E11.9 Type 2 diabetes mellitus without complications (principal)

== ENCOUNTER → 2017-10-30 | Outpatient (REF) ==
[2017-10-30 11:12] LABS: HEMATOCRIT 46.4 % (42.0-52.0); MEAN CORPUSCULAR HEMOGLOBIN 31.4 pg (27.0-33.0); MEAN CORPUSCULAR HGB CONC 32.3 g/dl (32.0-36.5); MEAN CORPUSCULAR VOLUME 97.1 fl (80.0-96.0); PLATELET COUNT, AUTOMATED 216 10^3/uL (150-450); RED BLOOD COUNT 4.78 10^6/uL (4.30-6.10); WHITE BLOOD COUNT 9.8 10^3/uL (4.0-10.0)
[2017-10-30 11:32] LABS: ANION GAP 8 MEQ/L (8-16); BLOOD UREA NITROGEN 62 MG/DL (7-18); CARBON DIOXIDE LEVEL 29 MEQ/L (21-32); CHLORIDE LEVEL 106 MEQ/L (98-107); CREATININE FOR GFR 2.03 MG/DL (0.70-1.30); GLOMERULAR FILTRATION RATE 33.9 (>42); GLUCOSE, FASTING 337 MG/DL (83-110); NT-PRO BNP 10691 PG/ML (<450); POTASSIUM SERUM 4.3 MEQ/L (3.5-5.1); SODIUM LEVEL 143 MEQ/L (136-145)
== END ==
DX: I50.9 Heart failure, unspecified (principal)

== ENCOUNTER → 2017-11-07 | Outpatient (REF) ==
[2017-11-07 10:52] LABS: HEMATOCRIT 46.8 % (42.0-52.0); HEMOGLOBIN 15.3 g/dl (14.0-18.0); MEAN CORPUSCULAR HEMOGLOBIN 31.7 pg (27.0-33.0); MEAN CORPUSCULAR HGB CONC 32.7 g/dl (32.0-36.5); MEAN CORPUSCULAR VOLUME 97.1 fl (80.0-96.0); PLATELET COUNT, AUTOMATED 130 10^3/uL (150-450); RED BLOOD COUNT 4.82 10^6/uL (4.30-6.10); RED CELL DISTRIBUTION WIDTH 15.3 % (11.5-14.5); WHITE BLOOD COUNT 5.7 10^3/uL (4.0-10.0)
[2017-11-07 11:20] LABS: ANION GAP 11 MEQ/L (8-16); BLOOD UREA NITROGEN 61 MG/DL (7-18); CALCIUM LEVEL 8.5 MG/DL (8.8-10.2); CARBON DIOXIDE LEVEL 24 MEQ/L (21-32); CHLORIDE LEVEL 109 MEQ/L (98-107); CREATININE FOR GFR 2.23 MG/DL (0.70-1.30); GLOMERULAR FILTRATION RATE 30.4 (>42); GLUCOSE, FASTING 266 MG/DL (83-110); NT-PRO BNP 4482 PG/ML (<450); POTASSIUM SERUM 4.5 MEQ/L (3.5-5.1); SODIUM LEVEL 144 MEQ/L (136-145)
== END ==
DX: I50.9 Heart failure, unspecified (principal)

== ENCOUNTER → 2017-12-04 | Outpatient (REF) | payer MEDICARE, OTHER ==
[2017-12-04 10:21] LABS: ANION GAP 10 MEQ/L (8-16); BLOOD UREA NITROGEN 65 MG/DL (7-18); CALCIUM LEVEL 8.4 MG/DL (8.8-10.2); CARBON DIOXIDE LEVEL 24 MEQ/L (21-32); CHLORIDE LEVEL 105 MEQ/L (98-107); CREATININE FOR GFR 2.57 MG/DL (0.70-1.30); GLOMERULAR FILTRATION RATE 25.8 (>42); GLUCOSE, FASTING 298 MG/DL (70-100); SODIUM LEVEL 139 MEQ/L (136-145)
[2017-12-04 10:24] LABS: POTASSIUM SERUM 5.3 MEQ/L (3.5-5.1)
== END ==
DX: D64.9 Anemia, unspecified (principal); I10 Essential (primary) hypertension
CPT/HCPCS: 80048

== ENCOUNTER → 2017-12-05 | Outpatient (REF) | payer MEDICARE, OTHER ==
[2017-12-05 10:51] LABS: HEMATOCRIT 42.8 % (42.0-52.0); HEMOGLOBIN 14.1 g/dl (14.0-18.0); MEAN CORPUSCULAR HGB CONC 32.9 g/dl (32.0-36.5); MEAN CORPUSCULAR VOLUME 97.1 fl (80.0-96.0); PLATELET COUNT, AUTOMATED 161 10^3/uL (150-450); RED BLOOD COUNT 4.41 10^6/uL (4.30-6.10); RED CELL DISTRIBUTION WIDTH 15.9 % (11.5-14.5); WHITE BLOOD COUNT 5.9 10^3/uL (4.0-10.0)
[2017-12-05 11:18] LABS: ANION GAP 11 MEQ/L (8-16); BLOOD UREA NITROGEN 64 MG/DL (7-18); CALCIUM LEVEL 8.2 MG/DL (8.8-10.2); CARBON DIOXIDE LEVEL 23 MEQ/L (21-32); CHLORIDE LEVEL 105 MEQ/L (98-107); CREATININE FOR GFR 2.62 MG/DL (0.70-1.30); GLOMERULAR FILTRATION RATE 25.3 (>42); GLUCOSE, FASTING 246 MG/DL (70-100); NT-PRO BNP 4292 PG/ML (<450); POTASSIUM SERUM 5.1 MEQ/L (3.5-5.1); SODIUM LEVEL 139 MEQ/L (136-145)
== END ==
DX: I50.9 Heart failure, unspecified (principal)

== ENCOUNTER → 2017-12-18 | Outpatient (REF) ==
[2017-12-18 10:29] LABS: BASO # 0.1 10^3/uL (0.0-0.2); BASO % 0.7 % (0.0-1.0); EOS # 0.8 10^3/uL (0.0-0.50); HEMATOCRIT 46.1 % (42.0-52.0); HEMOGLOBIN 14.9 g/dl (14.0-18.0); IMMATURE GRANULOCYTE % 0.3 % (0-3.0); LYMPH # 0.7 10^3/uL (1.5-4.5); LYMPH % 10.3 % (24.0-44.0); MEAN CORPUSCULAR HEMOGLOBIN 32.3 pg (27.0-33.0); MEAN CORPUSCULAR HGB CONC 32.3 g/dl (32.0-36.5); MEAN CORPUSCULAR VOLUME 99.8 fl (80.0-96.0); MONO # 0.7 10^3/uL (0.0-0.8); MONO % 9.7 % (0.0-5.0); NEUTROPHILS # 4.6 10^3/uL (1.8-7.7); PLATELET COUNT, AUTOMATED 191 10^3/uL (150-450); RED BLOOD COUNT 4.62 10^6/uL (4.30-6.10); RED CELL DISTRIBUTION WIDTH 16.8 % (11.5-14.5); WHITE BLOOD COUNT 6.8 10^3/uL (4.0-10.0)
[2017-12-18 10:51] LABS: ANION GAP 8 MEQ/L (8-16); BLOOD UREA NITROGEN 68 MG/DL (7-18); CALCIUM LEVEL 8.5 MG/DL (8.8-10.2); CARBON DIOXIDE LEVEL 27 MEQ/L (21-32); CHLORIDE LEVEL 104 MEQ/L (98-107); CREATININE FOR GFR 2.75 MG/DL (0.70-1.30); GLOMERULAR FILTRATION RATE 23.9 (>42); GLUCOSE, FASTING 288 MG/DL (70-100); PHOSPHORUS LEVEL 3.3 MG/DL (2.5-4.9); POTASSIUM SERUM 5.1 MEQ/L (3.5-5.1); SODIUM LEVEL 139 MEQ/L (136-145)
[2017-12-18 11:11] LABS: PTH INTACT 94.9 PG/ML (18.5-88.0)
== END ==
DX: N18.9 Chronic kidney disease, unspecified (principal); I12.9 Hypertensive chronic kidney disease with stage 1 through stage 4 chronic kidney disease, or unspecified chronic kidney disease

== ENCOUNTER 2017-12-23 16:29 | Emergency (ER) | payer MEDICARE, OTHER ==
[2017-12-23] MEDS: methylPREDNISolone INJ 125 MG/2 ML VIAL (J2930) IV (16:45)
[2017-12-23] MEDS: NS 500 ML IV (16:45)
[2017-12-23] MEDS: FAMOTIDINE IV BAG 20 MG in APPROPRIATE DILUENT 1 EA IV (16:45)
== END 2017-12-23 19:36 | disposition home or self-care (01) ==
LOC: M ED 16:29
DX: T78.3XXA Angioneurotic edema, initial encounter (principal); Y92.9 Unspecified place or not applicable; Y93.9 Activity, unspecified; E11.9 Type 2 diabetes mellitus without complications; I51.9 Heart disease, unspecified; I10 Essential (primary) hypertension; Z79.82 Long term (current) use of aspirin; Z79.4 Long term (current) use of insulin; Z79.899 Other long term (current) drug therapy; Z79.01 Long term (current) use of anticoagulants; Z91.018 Allergy to other foods
CPT/HCPCS: J2930

== ENCOUNTER → 2018-01-01 | Outpatient (REF) | payer MEDICARE, OTHER ==
[2018-01-01 09:58] LABS: HEMATOCRIT 51.9 % (42.0-52.0); MEAN CORPUSCULAR HEMOGLOBIN 32.2 pg (27.0-33.0); MEAN CORPUSCULAR HGB CONC 32.8 g/dl (32.0-36.5); MEAN CORPUSCULAR VOLUME 98.3 fl (80.0-96.0); PLATELET COUNT, AUTOMATED 146 10^3/uL (150-450); RED BLOOD COUNT 5.28 10^6/uL (4.30-6.10); RED CELL DISTRIBUTION WIDTH 15.9 % (11.5-14.5); WHITE BLOOD COUNT 12.9 10^3/uL (4.0-10.0)
[2018-01-01 10:31] LABS: ANION GAP 11 MEQ/L (8-16); BLOOD UREA NITROGEN 86 MG/DL (7-18); CALCIUM LEVEL 8.9 MG/DL (8.8-10.2); CARBON DIOXIDE LEVEL 26 MEQ/L (21-32); CHLORIDE LEVEL 104 MEQ/L (98-107); CREATININE FOR GFR 2.21 MG/DL (0.70-1.30); GLOMERULAR FILTRATION RATE 30.7 (>42); GLUCOSE, FASTING 158 MG/DL (70-100); NT-PRO BNP 3829 PG/ML (<450); POTASSIUM SERUM 4.8 MEQ/L (3.5-5.1); SODIUM LEVEL 141 MEQ/L (136-145)
== END ==
DX: I50.9 Heart failure, unspecified (principal)
CPT/HCPCS: 80048

== ENCOUNTER → 2018-01-02 | Outpatient (REF) | payer MEDICARE, OTHER | DX: R05 Cough (principal) | CPT/HCPCS: 71045 ==